=== PATIENT | female | born 1935 | race Caucasian/White ===

== ENCOUNTER 2017-02-18 19:45 | Observation (INO) | payer MEDICARE ==
[~2017-02-18] VITALS: Ht 162.6 cm; Wt 64.4 kg
[~2017-02-18 19:45] MED LIST: BYSTOLIC5 MG PO; LIPITOR TAB 2020 MG PO; NORVASC 5 MG TAB5 MG PO
[2017-02-18 23:02] LABS: HEMOGLOBIN 14.1 gm/dl (12.3-15.3); RED BLOOD COUNT 5.02 M/UL (4.00-5.10); WHITE BLOOD COUNT 10.6 K/UL (4.5-11.0)
[2017-02-18 23:16] LABS: BUN/CREATININE RATIO 11 (0-10)
[2017-02-19] MEDS ORDERED: CLARITIN10 M2 PO (02:45)
[2017-02-19] MEDS ORDERED: MIRAPEX1 MG PO (02:45)
[2017-02-19] MEDS ORDERED: BUSPIRONE HCL7.5 MG PO (02:45)
[2017-02-19] MEDS ORDERED: LIPITOR TAB 2020 MG PO (02:46)
[2017-02-19] MEDS ORDERED: OMEPRAZOLE20 M1 PO (02:46)
[2017-02-19] MEDS ORDERED: LISINOPRIL40 MG PO (02:47)
[2017-02-19] MEDS ORDERED: NEURONTIN300 MG PO (02:47)
[2017-02-19] MEDS ORDERED: LEXAPRO10 MG PO (02:47)
[2017-02-19] MEDS ORDERED: MECLIZINE HCL25 MG PO (02:48)
[2017-02-19] MEDS ORDERED: ASPIRIN81 MG PO (02:48)
[2017-02-19] MEDS ORDERED: VITAMIN D32000 UNIT PO (02:49)
[2017-02-19] MEDS ORDERED: VITAMIN B12-FO1 EACH PO (02:49)
[2017-02-19 03:45] LABS: HEMOGLOBIN 13.7 gm/dl (12.3-15.3); RED BLOOD COUNT 4.86 M/UL (4.00-5.10); WHITE BLOOD COUNT 9.9 K/UL (4.5-11.0)
[2017-02-19 03:59] LABS: BUN/CREATININE RATIO 10 (0-10)
[2017-06-23] MEDS ORDERED: VITAMIN D250000 UNIT PO (04:00)
[2017-06-23] MEDS ORDERED: LEXAPRO20 MG PO (04:02)
[2017-06-23] MEDS ORDERED: TYLENOL 500 MG500 MG PO (04:03)
[2017-06-24] MEDS ORDERED: IPRAT-ALBUT 0.5-3 ML INH (18:12)
[2017-06-24] MEDS ORDERED: LEVAQUIN500 MG PO (18:13)
[2017-06-24] MEDS ORDERED: PREDNISONE 20 M20 MG PO (18:14)
[2017-06-24] MEDS ORDERED: DOXYCYCLINE HY100 M2 PO (19:20)
[2017-07-31] MEDS ORDERED: DULERA 200 MCG8.8 GM INH (12:17)
== END 2017-02-19 17:43 | disposition home or self-care (01) ==
LOC: ER1 19:45 → M/S 02-19 → ZEROF 02-19 → M/S 02-19 02:49
PROVIDERS: Physician Assistant; ADMIT Hospitalist
DX: R07.9 Chest pain, unspecified (principal); I25.10 Atherosclerotic heart disease of native coronary artery without angina pectoris; I44.2 Atrioventricular block, complete; I10 Essential (primary) hypertension; E78.5 Hyperlipidemia, unspecified; Z86.711 Personal history of pulmonary embolism; Z95.0 Presence of cardiac pacemaker; Z87.19 Personal history of other diseases of the digestive system; Z90.49 Acquired absence of other specified parts of digestive tract; Z79.891 Long term (current) use of opiate analgesic; Z79.82 Long term (current) use of aspirin; Z79.899 Other long term (current) drug therapy; Z86.2 Personal history of diseases of the blood and blood-forming organs and certain disorders involving the immune mechanism; Z90.710 Acquired absence of both cervix and uterus; Z88.8 Allergy status to other drugs, medicaments and biological substances; Z83.3 Family history of diabetes mellitus; Z82.49 Family history of ischemic heart disease and other diseases of the circulatory system
CPT/HCPCS: 36415; 71010; 80048; 80053; 82550; 82553; 83874; 83880; 84484; 85025; 85610; 93005; 99285; G0378